=== PATIENT | female | born 1955 | race Hispanic/Latino ===

== ENCOUNTER 2017-06-25 15:23 | Outpatient (CLI) | payer SELFPAY ==
--- NOTE | 2017-06-25 15:46 | MMO ---
BILATERAL SCREENING MAMMOGRAMS: Date: 06/25/17 This is a baseline study. This patient's mammogram was interpreted with the assistance of computer-aided detection. FINDINGS: Scattered fibroglandular densities. There is a 5.0 mm nodular density in the outer mid left breast. Recommend this be further evaluated w ith diagnostic left breast exam. IMPRESSION: BIRADS 0: Incomplete: Need Additional Imaging Evaluation and/or Prior Mammograms for Comparison Further imaging of the left breast required. The facility will notify the patient of the need for additional imaging services. POS: [facility]
== END 2017-06-25 15:24 | disposition home or self-care (01) ==
LOC: SCSMAMMO 15:23
PROVIDERS: ATTEND Nurse Practitioner Family
DX: Z12.31 Encounter for screening mammogram for malignant neoplasm of breast (principal)
CPT/HCPCS: 77067